=== PATIENT | male | born 1955 | race Two or more races ===

== ENCOUNTER → 2024-04-05 | Outpatient (CLI) | payer OTHER, MEDICAID, SELFPAY ==
[2024-04-05 09:11] LABS: Glucose Estimated Average 128 mg/dL (80-131); Hemoglobin A1C 6.1 % Hgb (4.8-6.0)
== END | disposition home or self-care (01) ==
PROVIDERS: PCP Nurse Practitioner Family; Referring Provider Nurse Practitioner Family; Visit Provider Nurse Practitioner Family
DX: E11.9 Type 2 diabetes mellitus without complications (principal)
CPT/HCPCS: 36415; 83036